=== PATIENT | female | born 1960 | race Caucasian/White ===

== ENCOUNTER 2018-12-06 13:05 | Emergency (ER) | payer MEDICARE, MEDICAID ==
[~2018-12-06] VITALS: Ht 172.7 cm; Wt 82.0 kg
[2018-12-06 13:13] VITALS: BP 145/78
[2018-12-06] MEDS ORDERED: GABA-534 PO (13:40)
[2018-12-06] MEDS ORDERED: CARB200T PO (13:40)
--- NOTE | 2018-12-06 13:59 | NUR ---
I WENT INTO [facility] TO DC PT, PT WAS GONE. WE HAVE RX FOR HER. I WILL HOLD ON TO CHART IN CASE PT DOED RETURN.
== END 2018-12-06 15:47 | disposition home or self-care (01) ==
LOC: ER 13:06
DX: F31.9 Bipolar disorder, unspecified (principal); F41.9 Anxiety disorder, unspecified; Z76.0 Encounter for issue of repeat prescription; Z88.0 Allergy status to penicillin; Z88.8 Allergy status to other drugs, medicaments and biological substances
CPT/HCPCS: 99283

== ENCOUNTER 2018-12-08 20:04 | Emergency (ER) | payer MEDICARE, MEDICAID ==
[~2018-12-08] VITALS: Ht 172.7 cm; Wt 81.8 kg
[~2018-12-08 20:04] MED LIST: CARB200T PO; GABA-534 PO
--- NOTE | 2018-12-08 21:47 | NUR ---
pt has been place in que for telepsych consult.
--- NOTE | 2018-12-08 22:07 | NUR ---
pt is sleeping on left side. no s/s of distress, unlabored rr.
[2018-12-08 23:32] LABS: BASOPHILS # (AUTO) 0.1 X10'3 (0-0.2); EOSINOPHILS # (AUTO) 0.1 X10'3 (0-0.9); EOSINOPHILS % (AUTO) 1.6 % (0-6); HEMATOCRIT 35.7 % (35.0-45.0); LYMPHOCYTES # (AUTO) 2.4 X10'3 (1.1-4.8); LYMPHOCYTES % (AUTO) 31.3 % (21-51); MEAN CORPUSCULAR HEMOGLOBIN 30.3 PG (27.0-31.0); MEAN CORPUSCULAR HGB CONC 33.6 g/dL (33.0-36.5); MEAN CORPUSCULAR VOLUME 90.1 FL (78-98); MEAN PLATELET VOLUME 8.4 FL (7.4-10.4); MONOCYTES # (AUTO) 0.5 X10'3 (0-0.9); MONOCYTES % (AUTO) 6.2 % (2-12); NEUTROPHILS # (AUTO) 4.7 X10'3 (1.8-7.7); NEUTROPHILS % (AUTO) 59.9 % (42-75); PLATELET COUNT 189 X10'3 (140-440); RED BLOOD COUNT 3.96 X10'6 (4.20-5.60); RED CELL DISTRIBUTION WIDTH 14.3 % (11.5-14.5); WHITE BLOOD COUNT 7.8 X10'3 (4.5-11.0)
--- NOTE | 2018-12-08 23:36 | NUR ---
pt attempted to give urine sample but unable to voidl. given water to drink.
[2018-12-08 23:39] LABS: ALANINE AMINOTRANSFERASE 22 U/L (12-78); ALBUMIN 3.2 G/DL (3.4-5.0); ALKALINE PHOSPHATASE 124 IU/L (46-116); ANION GAP 8 (8-16); ASPARTATE AMINO TRANSFERASE 19 U/L (10-37); BILIRUBIN,TOTAL 0.2 MG/DL (0.1-1.0); BLOOD UREA NITROGEN 17 MG/DL (7-18); BUN/CREATININE RATIO 23.3 (6.6-38.0); CALCIUM 8.9 MG/DL (8.5-10.1); CHLORIDE 106 MMOL/L (99-107); CREATININE 0.73 MG/DL (0.40-0.90); GLUCOSE 131 MG/DL (70-104); POTASSIUM 3.6 MMOL/L (3.5-5.1); SODIUM 142 MMOL/L (135-145); TOTAL CARBON DIOXIDE 27.6 MMOL/L (24-32); TOTAL PROTEIN 6.4 G/DL (6.4-8.2); eGFR 81 ML/MIN
[2018-12-08 23:48] LABS: ETHANOL < 0.010 GM/DL (0.0-0.010)
--- NOTE | 2018-12-08 23:48 | NUR ---
pt fell asleep, not drinking water. pt was awakened and asked to drink water in order to get urine sample.
--- NOTE | 2018-12-09 00:37 | NUR ---
PT UP TO GIVE URINE SAMPLE, THEN BACK TO BED.
[2018-12-09 00:44] LABS: URINE AMPHETAMINE SCREEN NEGATIVE (Neg); URINE BARBITUATE SCREEN NEGATIVE (Neg); URINE BENZODIAZEPINES SCREEN NEGATIVE (Neg); URINE CANNABINOID SCREEN NEGATIVE (Neg); URINE COCAINE SCREEN NEGATIVE (Neg); URINE METHADONE SCREEN NEGATIVE (Neg); URINE OPIATE SCREEN NEGATIVE (Neg); URINE PHENCYCLIDINE SCREEN NEGATIVE (Neg)
[2018-12-09 00:45] LABS: CLARITY,URINE CLEAR (Clear); COLOR,URINE YELLOW (Yellow); GLUCOSE, URINE NEGATIVE (Neg); KETONES,URINE NEGATIVE (Neg); LEUKOCYTE ESTERASE ,URINE NEGATIVE (Neg); NITRITES, URINE NEGATIVE (Neg); OCCULT BLOOD,URINE NEGATIVE (Neg); PROTEIN,URINE NEGATIVE (Neg); UROBILINOGEN,URINE 0.2 E.U/dL (0.2-1.0)
[2018-12-09 00:46] LABS: UA COLLECTION TYPE CLN CATCH MIDSTREAM
--- NOTE | 2018-12-09 01:39 | NUR ---
PT CONTINUES TO SLEEP, NO S/S OF DISTRESS. WILL CONTINUE TO MONITOR
--- NOTE | 2018-12-09 02:16 | NUR ---
pt continues to sleep. no s/s of distress, will continue to monitor.
--- NOTE | 2018-12-09 03:07 | NUR ---
pt completed telepsych consult. psychiatrist is recommending 5150, Dr Brenner notified.
--- NOTE | 2018-12-09 03:36 | NUR ---
pt continues to sleep. no s/s of distress, will continue to monitor.
--- NOTE | 2018-12-09 04:50 | NUR ---
pt continues to sleep. no s/s of distress, will continue to monitor.
--- NOTE | 2018-12-09 07:00 | NUR ---
Patient sleeping on right side. No distress observed. Continue to monitor.
[2018-12-09] MEDS ORDERED: GABA-534 PO (07:44)
[2018-12-09] MEDS ORDERED: CARB200T8 PO ×2 (07:44)
[2018-12-09] MEDS ORDERED: OLAN5TAB5 PO (07:44)
--- NOTE | 2018-12-09 08:55 | NUR ---
Patient sleeping and easily awakens to voice. Patient c/o depression and suicidal ideation. Patient's plan is to overdose on medication. [facility] Patient lives in [place] but doesn't have $ to get back there.
[2018-12-09] MEDS: carBAMazepine 100mg chewable tablet PO SCH ×2 (10:09→21:09)
--- NOTE | 2018-12-09 11:10 | NUR ---
Patient sleeping supine. No distress observed. Continue to monitor.
[2018-12-09] MEDS: gabapentin 400mg capsule PO SCH ×2 (13:18→21:09)
--- NOTE | 2018-12-09 13:19 | NUR ---
RELIEVING RN FOR LUNCH, PT IS RESTING QUIETLY ON BED, EATING LUNCH, PT IS COMPLIANT WITH TAKING PO MED
--- NOTE | 2018-12-09 15:00 | NUR ---
Patient sleeping on right side. No distress observed. Continue to monitor.
--- NOTE | 2018-12-09 17:22 | NUR ---
Patient sleeping on left side. No distress observed. Continue to monitor.
--- NOTE | 2018-12-09 18:30 | NUR ---
Report rec'd, care assumed. Resting in bed without issues noted, will monitor.
--- NOTE | 2018-12-09 19:33 | NUR ---
Ate dinner without issues, currently resting in bed with eyes closed.
--- NOTE | 2018-12-09 20:35 | NUR ---
Resting in bed, appearing to sleep, will monitor.
[2018-12-09] MEDS: OLANZapine 5mg rapidly disint. tablet PO SCH (21:09)
--- NOTE | 2018-12-09 21:26 | NUR ---
Took medications without issues. Up to BRP, juice given per patient's request. No new issues or concerns noted, will continue to monitor for changes.
--- NOTE | 2018-12-09 22:46 | NUR ---
Resting in bed, appearing to sleep with eyes closed, resp even and unlabored. Will monitor.
--- NOTE | 2018-12-09 23:32 | NUR ---
Up to BRP per self, back to bed without new issues or concerns
--- NOTE | 2018-12-10 00:17 | NUR ---
Eyes closed, resting in bed with even and unlabored resp. Appearing to sleep comfortably without new issues or concerns noted. Will continue to monitor.
--- NOTE | 2018-12-10 00:45 | NUR ---
Up to BRP
--- NOTE | 2018-12-10 01:21 | NUR ---
In bed, appearing to sleep.
--- NOTE | 2018-12-10 02:59 | NUR ---
Appearing to sleep, no new concerns or issues noted. Will continue to monitor.
--- NOTE | 2018-12-10 03:51 | NUR ---
Resting in bed with eyes closed, appearing to sleep without new issues or concerns noted, will continue to monitor for changes.
--- NOTE | 2018-12-10 05:01 | NUR ---
Up to BRP, no needs voiced.
--- NOTE | 2018-12-10 05:45 | NUR ---
Vital signs taken by Tech. Cooperative with cares this morning, will monitor.
--- NOTE | 2018-12-10 06:45 | NUR ---
Patient sleeping on right side. No distress observed. Continue to monitor.
--- NOTE | 2018-12-10 07:40 | NUR ---
Patient got up and went to back of [employer] to get a book to read. Patient ambulatory with steady gait. No distress observed. Continue to monitor.
--- NOTE | 2018-12-10 08:16 | NUR ---
Patient eating breakfast. No distress observed. Continue to monitor.
[2018-12-10] MEDS: carBAMazepine 100mg chewable tablet PO SCH ×2 (08:21→20:33)
[2018-12-10] MEDS: gabapentin 400mg capsule PO SCH ×3 (08:21→20:32)
--- NOTE | 2018-12-10 10:31 | NUR ---
Patient sleeping on right side. No distress observed. Continue to monitor.
--- NOTE | 2018-12-10 12:17 | NUR ---
Patient sleeping on right side. No distress observed. Continue to monitor.
--- NOTE | 2018-12-10 13:12 | NUR ---
Patient eating. No distress observed. Continue to monitor.
--- NOTE | 2018-12-10 15:17 | NUR ---
Patient awakened by screaming patient. Patient is calm and staying in her bed. Continue to monitor.
--- NOTE | 2018-12-10 16:40 | NUR ---
Patient talking on phone. No distress observed. Continue to monitor.
--- NOTE | 2018-12-10 17:18 | NUR ---
Patient sleeping on left side. No restlessness seen. Continue to monitor.
--- NOTE | 2018-12-10 17:20 | NUR ---
Patient's friend Spencer Chen [phone]
--- NOTE | 2018-12-10 19:16 | NUR ---
PT DENIES SUICIDAL IDEATIONS AT THIS TIME, HAS PLAN TO GET TO [place] WHERE SHE HAS A JOB. STATES HAS MONEY IN THE BANK FOR TRAVEL.
[2018-12-10] MEDS: OLANZapine 5mg rapidly disint. tablet PO SCH (20:32)
--- NOTE | 2018-12-10 20:37 | NUR ---
AWAKENED FOR HS MEDS, IMMEDIATLY BACK TO SLEEP.
--- NOTE | 2018-12-11 07:00 | NUR ---
Received pt resting quietly in bed, eyes closed without complaints.
[2018-12-11] MEDS: carBAMazepine 100mg chewable tablet PO SCH ×2 (07:39→20:42)
[2018-12-11] MEDS: gabapentin 400mg capsule PO SCH ×3 (07:39→20:42)
--- NOTE | 2018-12-11 09:00 | NUR ---
Pt awoke for breakfast and cooperated with am assessment, then returned to resting quietly with eyes closed.
--- NOTE | 2018-12-11 11:00 | NUR ---
Pt continues to rest quietly in bed, eyes closed, without complaints.
--- NOTE | 2018-12-11 12:45 | NUR ---
Pt awoke and requested a snack and asked about being evaluated. Pt educated that her information has been sent out so she can be admitted to an inpatient unit. She seemed pleased and returned to sleep.
--- NOTE | 2018-12-11 13:10 | NUR ---
RN assumed patient care. Patient eating lunch. No distress observed. Continue to monitor.
--- NOTE | 2018-12-11 15:25 | NUR ---
Patient sleeping on right side. No distress observed. Continue to monitor.
--- NOTE | 2018-12-11 19:48 | NUR ---
FINISHED DINNER THEN WENT TO SLEEP.
[2018-12-11] MEDS: OLANZapine 5mg rapidly disint. tablet PO SCH (20:42)
[2018-12-12 05:30] VITALS: BP 126/72
--- NOTE | 2018-12-12 06:30 | NUR ---
Asleep upon change of shift observation. In no acute distress. Undisturbed at this time.
[2018-12-12] MEDS: gabapentin 400mg capsule PO SCH ×3 (08:23→20:49)
[2018-12-12] MEDS: carBAMazepine 100mg chewable tablet PO SCH ×2 (08:24→20:49)
--- NOTE | 2018-12-12 08:30 | NUR ---
Awakened for breakfast and AM medications. In good spirits. Pleasant upon staff approach. Denies suicidal ideation or intent when asked. States "That was before. I'm better now."
--- NOTE | 2018-12-12 10:30 | NUR ---
Xochitl Felix from [facility] here to evaluate patient. 5150 status upheld.
--- NOTE | 2018-12-12 13:30 | NUR ---
Awakened for lunch. Picked at her food. Went back to sleep immediately afterwards.
[2018-12-12] MEDS ORDERED: OLANZapine 5mg rapidly disint. tablet PO ONE (17:05)
--- NOTE | 2018-12-12 17:25 | NUR ---
Awakened from a nap at 1709 and asked if it was time for her to leave. Informed her 5150 had been renewed. Patient began to cry loudly. States "I have to go to [place]. 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 I've got to find my friend Jordi." Patient continues to cry loudly. Dr. Arciniega here. Ordered patient to receive Zyprexa Zydis 10 mg. Medication administered as ordered. Patient continues to cry at this time.
--- NOTE | 2018-12-12 17:43 | NUR ---
PATIENT REFUSED VITALS
--- NOTE | 2018-12-12 18:15 | NUR ---
Received a call from Amina from [facility] stating patient had been accepted at [facility].
--- NOTE | 2018-12-12 19:08 | NUR ---
AWAITING TRANSFER TO [facility].
--- NOTE | 2018-12-12 20:24 | NUR ---
sample packet of Abilify 10 mg found in patient belongins. Pt states that a doctor gave her samples to try, but did not like them so she stopped taking them. Pt did not remember the name of the administering doctor. Remainder of pills sent to pharmacy.
[2018-12-12] MEDS: OLANZapine 5mg rapidly disint. tablet PO SCH (20:49)
[2018-12-13] MEDS ORDERED: NO HOME MEDS (19:10)
== END 2018-12-12 20:56 ==
LOC: ER 20:04
DX: F31.89 Other bipolar disorder (principal); R45.851 Suicidal ideations; F41.9 Anxiety disorder, unspecified; F17.200 Nicotine dependence, unspecified, uncomplicated; Z56.0 Unemployment, unspecified; Z88.0 Allergy status to penicillin; Z88.8 Allergy status to other drugs, medicaments and biological substances
CPT/HCPCS: 36415; 80053; 80156; 80305; 80320; 81003; 84443; 85025; 99285